=== PATIENT | male | born 1950 | race Caucasian/White ===

== ENCOUNTER 2020-02-16 20:33 | Emergency (ER) | payer MEDICARE, OTHER ==
[2020-02-16] MEDS ORDERED: Ondansetron 4 MG Tab.DIS PO ONE (20:34)
[2020-02-16] MEDS ORDERED: Lactated Ringers 500 ML IV ONE (20:59)
[2020-02-16] MEDS ORDERED: Ondansetron 4 MG/2 ML SDV IV ONE (20:59)
--- NOTE | 2020-02-16 21:04 | EDM.PDOC ---
ED HPI GENERAL MEDICAL PROBLEM - General Chief Complaint: General Stated Complaint: THROWING UP REALLY SICK, MECHINICAL VALVE IN HEART Time Seen by Provider: 02/16/20 20:50 Source of Information: Reports: Patient History Limitations: Reports: No Limitations - History of Present Illness INITIAL COMMENTS - FREE TEXT/NARRATIVE: Patient comes emergency department today with complaints of nausea and vomiting. About 2 hours ago the patient suddenly developed nausea [place] He is from [facility]. He is here with some friends on a fishing trip. No one else is ill. His vomiting and nausea has improved he is just slightly nauseated now. He had some lightheadedness at home. No chest pain no shortness of breath or difficulty breathing. No weakness or dizziness just some lightheadedness. No palpitations. No syncope. He has no abdominal pain. No diarrhea. No recent antibiotics or diarrhea. He has been out in the sun a little bit more than normal. He does have a history of mechanical heart valve as well as open heart surgery and a stroke about 3 years ago. He has no change in the functionality of his upper or lower extremities. No paresthesias. No visual acuity. No change in his gait. Abdomen Pain Score (Numeric/FACES): 6 Headache Pain Score (Numeric/FACES): 6 - Related Data Allergies Allergy/AdvReac Type Severity Reaction Status Date / Time No Known Allergies Allergy Verified 02/16/20 20:52 Past Medical History Gastrointestinal History: Reports: Other (See Below) Other Gastrointestinal History: abdominal hernia Neurological History: Reports: CVA - Past Surgical History Cardiovascular Surgical History: Reports: Other (See Below) Other Cardiovascular Surgeries/Procedures: open heart surgery. mehanical valve Social & Family History - Family History Family Medical History: Noncontributory - Tobacco Use Smoking Status *Q: Unknown Ever Smoked Second Hand Smoke Exposure: No - Caffeine Use Caffeine Use: Reports: Energy Drinks - Alcohol Use Days Per Week of Alcohol Use: 7 Number of Drinks Per Day: 3 Total Drinks Per Week: 21 Date of Last Drink: 02/16/20 - Recreational Drug Use Recreational Drug Use: No ED ROS GENERAL - Review of Systems Review Of Systems: Comprehensive ROS is negative, except as noted in HPI. ED EXAM, GENERAL - Physical Exam Exam: See Below Exam Limited By: No Limitations General Appearance: Alert, WD/WN, No Apparent Distress Eye Exam: Bilateral Eye: EOMI, PERRL Ears: Normal External Exam Nose: Normal Inspection Throat/Mouth: Normal Inspection, Normal Lips, Normal Oropharynx Head: Atraumatic, Normocephalic Neck: Normal Inspection, Supple Respiratory/Chest: No Respiratory Distress, Lungs Clear, Normal Breath Sounds, No Accessory Muscle Use Cardiovascular: Normal Peripheral Pulses, Regular Rate, Rhythm Peripheral Pulses: 2+: Radial (L), Radial (R), Posterior Tibial (L), Posterior Tibial (R), Dorsalis Pedis (L), Dorsalis Pedis (R) GI/Abdominal: Normal Bowel Sounds, Soft, Non-Tender, No Distention, No Abnormal Bruit, No Mass, Hernia (Does have a small umbilical hernia that is nontender.) (Male) Exam: Deferred Rectal (Males) Exam: Deferred Back Exam: Normal Inspection, Full Range of Motion Extremities: Normal Inspection, Normal Range of Motion, Normal Capillary Refill Neurological: Alert, Oriented, Normal Cognition, No Motor/Sensory Deficits Psychiatric: Normal Affect, Normal Mood Skin Exam: Warm, Dry, Intact, Normal Color, No Rash EKG INTERPRETATION EKG Date: 02/16/20 Time: 20:47 Rhythm: NSR Rate (Beats/Min): 58 Marvin: Normal P-Wave: Present QRS: Normal ST-T: Normal QT: Normal Comparison: NA - No Prior EKG Course - Vital Signs Last Recorded V/S: Last Vital Signs Temp 96.4 F L 02/16/20 20:44 Pulse 79 02/16/20 21:43 Resp 17 02/16/20 21:43 BP 130/75 02/16/20 21:43 Pulse Ox 94 L 02/16/20 21:43 - Orders/Labs/Meds Orders: Active Orders 24 hr Category Date Time Status EKG 12 Lead [EKG Documentation Completion] [RC] URGENT Care 02/16/20 20:47 Active Labs: Laboratory Tests 02/16/20 02/16/20 02/16/20 Range/Units 21:00 21:00 21:00 WBC 10.9 H (5.0-10.0) 10^3/uL RBC 4.80 (4.6-6.2) 10^6/uL Hgb 14.6 (14.0-18.0) g/dL Hct 43.0 (40.0-54.0) % MCV 89.6 (80-100) fL MCH 30.4 (27.0-34.0) pg MCHC 34.0 (33.0-35.0) g/dL Plt Count 146 L (150-450) 10^3/uL Neut % (Auto) 78.6 H (42.2-75.2) % Lymph % (Auto) 10.5 L (20.5-50.1) % Hill % (Auto) 8.7 H (2-8) % Eos % (Auto) 1.7 (1.0-3.0) % Baso % (Auto) 0.5 (0.0-1.0) % PT 47.0 H (9.0-12.0) SEC INR 5.0 H (0.9-1.2) APTT 39.7 H (22.0-34.0) SEC Sodium 139 (136-145) mmol/L Potassium 3.5 (3.5-5.1) mmol/L Chloride 101 (98-107) mmol/L Carbon Dioxide 31 (21-32) mmol/L Anion Gap 10.5 (7-13) mEq/L BUN 17 (7-18) mg/dL Creatinine 1.24 (0.70-1.30) mg/dL Est Cr Clr Drug Dosing 60.63 mL/min Estimated GFR (MDRD) 58 BUN/Creatinine Ratio 13.7 (No establ ref range) Glucose 123 H (74-99) mg/dL Calcium 8.2 L (8.5-10.1) mg/dL Total Bilirubin 0.3 (0.2-1.0) mg/dL AST 32 (15-37) U/L ALT 41 (16-63) U/L Alkaline Phosphatase 57 (46-116) U/L Troponin I < 0.017 (0.000-0.056) ng/mL Total Protein 7.8 (6.4-8.2) g/dL Albumin 3.9 (3.4-5.0) g/dL Globulin 3.9 Albumin/Globulin Ratio 1.0 Ethyl Alcohol < 3 (0) mg/dL Meds: Medications Discontinued Medications Generic Name Dose Route Start Last Admin Trade Name Freq PRN Reason Stop Dose Admin Lactated Ringer's 500 mls @ 1,000 mls/hr 02/16/20 20:59 02/16/20 21:07 Ringers, Lactated IV 02/16/20 21:28 1,000 mls/hr .BOLUS ONE Administration Ondansetron HCl 4 mg 02/16/20 20:59 02/16/20 21:05 Zofran IV 02/16/20 21:00 4 mg ONETIME ONE Administration Ondansetron HCl Confirm 02/16/20 22:55 02/16/20 23:03 Zofran Odt Administered 02/16/20 22:56 Not Given Dose 12 mg .ROUTE .Ubicom ONE - Re-Assessments/Exams Free Text/Narrative Re-Assessment/Exam: 02/17/20 Labs were drawn. IV LR 500ml bolus. Zofran 4mg IVP Unable to compare his EKG but is not having any chest pain. Troponin is negative. His INR is 5.0 and he still needs to take his dose of Coumadin for tonight. He is supposed to be at 3-3.5. I will have him hold his dose of Coumadin for tonight take his regular dose tomorrow and recheck another his INR on Thursday. Is feel much better after the above therapy. He is able to drink in the emergency department. His skin is pink warm and dry. He has no nausea his stomach is not upset and he feels much better. We will discharge him home with symptomatic management at this time and it is important for him to follow his INR as it was quite elevated at 5 today. Departure - Departure Time of Disposition: 22:39 Disposition: Home, Self-Care 01 Clinical Impression: Supratherapeutic INR Nausea & vomiting Qualifiers: Vomiting type: unspecified Vomiting Intractability: unspecified Qualified Code(s): R11.2 - Nausea with vomiting, unspecified - Discharge Information Instructions: Nausea and Vomiting, Adult, [id number] Forms: ED Department Discharge Additional Instructions: Hold your next dose of Coumadin and then back to normal regimen. Recheck your INR on Thursday. No dairy products until symptom free for 48 hrs. [place] diet and start with clear liquids. Slowly advance as tolerated. Lots of fluids especially electrolyte containing drinks like gatorade and or powerade. Zofran, 1 tablet every 6 hrs as needed for nausea and vomiting. 3 from the ED and RX given to the patient. Return to the ED if new or worsening symptoms. Recheck INR Thursday with PCP. Follow up with PCP in the next 4-6 days if not improving sooner if worse. Sepsis Event Note (ED) - Evaluation Sepsis Screening Result: No Definite Risk - Focused Exam Vital Signs: Vital Signs Temp Pulse Resp BP Pulse Ox 02/16/20 21:43 79 17 130/75 94 L 02/16/20 20:44 96.4 F L 65 16 157/94 H 94 L - My Orders Last 24 Hours: My Active Orders 02/16/20 20:47 EKG 12 Lead [EKG Documentation Completion] [RC] URGENT - Assessment/Plan Last 24 Hours: My Active Orders 02/16/20 20:47 EKG 12 Lead [EKG Documentation Completion] [RC] URGENT Assessment:: Nausea and vomiting. Supratherapeutic INR> Plan: Hold your next dose of Coumadin and then back to normal regimen. Recheck your INR on Thursday. No dairy products until symptom free for 48 hrs. [place] diet and start with clear liquids. Slowly advance as tolerated. Lots of fluids especially electrolyte containing drinks like gatorade and or powerade. Zofran, 1 tablet every 6 hrs as needed for nausea and vomiting. 3 from the ED and RX given to the patient. Return to the ED if new or worsening symptoms. Recheck INR Thursday with PCP. Follow up with PCP in the next 4-6 days if not improving sooner if worse.
[2020-02-16 21:30] LABS: SODIUM,NA 139 mmol/L (136-145)
[2020-02-16 21:40] LABS: PTT,PARTIAL THROMBOPLSTIN TIME 39.7 SEC (22.0-34.0)
[2020-02-16 22:04] LABS: ANION GAP 10.5 mEq/L (7-13); CHLORIDE,CL 101 mmol/L (98-107)
[2020-02-16] MEDS ORDERED: Ondansetron 4 MG Tab.DIS ONE (22:55)
== END 2020-02-16 23:00 | disposition home or self-care (01) ==
LOC: DL.ED 20:33
DX: R11.2 Nausea with vomiting, unspecified (principal); R79.1 Abnormal coagulation profile; Z86.73 Personal history of transient ischemic attack (TIA), and cerebral infarction without residual deficits
CPT/HCPCS: 36415; 80053; 80307; 84484; 85025; 85610; 85730; 93005; 96374; 99284; A9270; J2405; J7120